=== PATIENT | female | born 1980 | race Two or more races ===

== ENCOUNTER 2020-03-13 09:22 | Emergency (ER) | payer SELFPAY ==
[~2020-03-13] VITALS: Ht 160 cm; Wt 71.2 kg
[2020-03-13 09:34] VITALS: BP 124/88
[2020-03-13 09:53] LABS: Basophils # (auto) 0 10 ^3/uL (0-0.2); Eosinophils # (auto) 0.1 10 ^3/uL (0-0.8); Eosinophils % (auto) 0.7 % (0.0-7.0); Monocytes # (auto) 0.7 10 ^3/uL (0-1.3)
[2020-03-13 09:54] LABS: Basophils % (auto) 0.3 % (0.0-2.0); Hematocrit 28.1 % (36.0-46.0); Hemoglobin 9.1 g/dL (12.2-16.2); Lymphocytes # (auto) 2.2 10 ^3/uL (0.4-5.4); Lymphocytes % (auto) 28.7 % (10.0-50.0); Mean Corpuscular Hemoglobin 25.2 pg (28.0-32.0); Mean Corpuscular Hgb Conc. 32.2 g/dL (32.0-36.0); Mean Corpuscular Volume 78.2 fL (80.0-100.0); Monocytes % (auto) 8.9 % (0.0-12.0); Neutrophils # (auto) 4.7 10 ^3/uL (1.6-8.6); Neutrophils % (auto) 61.4 % (37.0-80.0); Platelet Count (auto) 375 10^3/uL (140-450); Red Cell Distribution Width 16.5 % (11.8-14.3); White Blood Cell 7.6 10^3/uL (4.4-10.8)
[2020-03-13 10:16] LABS: BUN/Creatinine Ratio 11.5; Calcium 8.4 mg/dL (8.5-10.1)
== END 2020-03-13 11:32 | disposition home or self-care (01) ==
LOC: ER 09:22
DX: D25.9 Leiomyoma of uterus, unspecified (principal); N83.202 Unspecified ovarian cyst, left side; D64.9 Anemia, unspecified
CPT/HCPCS: 36415; 76830; 76856; 80048; 85025

== ENCOUNTER 2023-04-15 13:09 | Emergency (ER) | payer BC, OTHER ==
[~2023-04-15] VITALS: Ht 160 cm; Wt 78.1 kg
[2023-04-15] MEDS ORDERED: IOHEXOL 350 MG/ML 100ML IJ ONE (13:36)
[2023-04-15 15:15] LABS: Basophils # (auto) 0 10 ^3/uL (0-0.2); Basophils % (auto) 0.7 % (0.0-2.0); Eosinophils # (auto) 0.1 10 ^3/uL (0-0.8); Eosinophils % (auto) 1.1 % (0.0-7.0); Hemoglobin 8.3 g/dL (12.2-16.2); Monocytes # (auto) 0.6 10 ^3/uL (0-1.3); Nucleated Red Blood Cells % 0.1 %; Red Cell Distribution Width 19.9 % (11.8-14.3)
[2023-04-15 15:18] LABS: Hematocrit 27.8 % (36.0-46.0); Lymphocytes # (auto) 2.1 10 ^3/uL (0.4-5.4); Mean Corpuscular Hemoglobin 19.3 pg (28.0-32.0); Mean Corpuscular Hgb Conc. 29.9 g/dL (32.0-36.0); Mean Corpuscular Volume 64.8 fL (80.0-100.0); Neutrophils # (auto) 3.6 10 ^3/uL (1.6-8.6); Neutrophils % (auto) 56.2 % (37.0-80.0); White Blood Cell 6.4 10^3/uL (4.4-10.8)
[2023-04-15 15:19] LABS: INR 1.03 (0.9-1.15); Partial Thromboplastin Time 26.5 SEC (24.5-34.5); Prothrombin Time 10.8 sec (9.3-11.8)
[2023-04-15 15:21] LABS: Albumin 3.5 g/dL (3.4-5.0); Anion Gap 7 (5-15); Blood Urea Nitrogen 6 mg/dL (7-18); Calcium 8.1 mg/dL (8.5-10.1); Carbon Dioxide 21 mmol/L (21-32); Chloride 107 mmol/L (98-107); Glucose 78 mg/dL (74-106); Magnesium 2.2 mg/dL (1.6-2.6); Potassium 3.6 mmol/L (3.5-5.1); Sodium 135 mmol/L (136-145)
[2023-04-15 15:23] LABS: BUN/Creatinine Ratio 13.3 (10.0-20.0); GFR African American 197 mL/min; GFR Non-African American 163 mL/min
[2023-04-15 15:27] LABS: Alanine Aminotransferase 17 U/L (13-56); Alkaline Phosphatase 75 U/L (45-117); Aspartate Aminotransferase 15 U/L (15-37); Bilirubin, Total 0.2 mg/dL (0.2-1.0); Total Protein 7.7 g/dL (6.4-8.2)
[2023-04-15] MEDS ORDERED: FER325T PO (15:41)
[2023-04-15] MEDS ORDERED: FERROUS SULFATE 325mg EC TAB PO ONE (15:45)
[2023-04-15 15:48] VITALS: BP 130/90; RESP 15; TEMP 97.8; O2SAT 97
[2023-04-15 15:53] VITALS: PULSE 64
[2023-04-15] MEDS ORDERED: METO-281 PO (15:53)
[2023-04-15 16:44] LABS: Anisocytosis Moderate; Hypochromia Marked; Large Platelets FEW; Ovalocytes FEW; Platelet Estimate Increased
== END 2023-04-15 16:02 | disposition home or self-care (01) ==
LOC: ER 13:09
DX: R51.9 Headache, unspecified (principal); D50.9 Iron deficiency anemia, unspecified; R07.89 Other chest pain
CPT/HCPCS: 36415; 70450; 70496; 71045; 80053; 83735; 84484; 85025; 85610; 85730; 93005; 99285; Q9967